=== PATIENT | female | born 1935 | race Caucasian/White ===

== ENCOUNTER 2022-02-14 08:51 | Outpatient (CLI) | payer MEDICARE, SELFPAY ==
[2022-02-14] MEDS: 0.9% NaCl Peripheral Flush Adult/Peds IV (09:18)
[2022-02-14 09:24] VITALS: BP 108/61; PULSE 92; RESP 16; TEMP 36.1; O2SAT 100; BMI 16.9
[2022-02-14 13:43] VITALS: BP 112/65; PULSE 74; RESP 16; O2SAT 98
== END 2022-02-14 23:59 | disposition home or self-care (01) ==
PROVIDERS: PCP Family Medicine; Referring Provider Internal Medicine Hematology & Oncology; Visit Provider Internal Medicine Hematology & Oncology
DX: E87.6 Hypokalemia (principal); C25.9 Malignant neoplasm of pancreas, unspecified; E83.42 Hypomagnesemia; R19.7 Diarrhea, unspecified
CPT/HCPCS: 96365; 96366; 96367; J7030; A4216